=== PATIENT | male | born 1965 | race Hispanic/Latino ===

== ENCOUNTER 2017-02-20 15:27 | Inpatient (IN) | payer OTHER ==
[~2017-02-20] VITALS: Ht 167.6 cm; Wt 64.1 kg
[2017-02-20] VITALS (8 sets, daily range): BP systolic 126–145; BP diastolic 84–96
[~2017-02-20 15:27] MED LIST: CALCIUM CHLORIDE 100 MG/ML 10 ML SYG IVP ONE; HEPARIN SODIUM 1000UNIT/ML 10ML VIAL IV ONE
[2017-02-20] MEDS ORDERED: ATROPINE SULFATE 0.1 MG/ML 10 ML SYG IVP ONE (15:43)
[2017-02-20] MEDS ORDERED: NITROGLYCERIN 5 MG/ML 10 ML VIAL IV ONE (15:44)
[2017-02-20] MEDS ORDERED: IOPAMIDOL-370 75 ML VIAL IV ONE (15:44)
[2017-02-20] MEDS ORDERED: HEPARIN SODIUM 1000UNIT/ML 10ML VIAL ONE (15:44)
[2017-02-20] MEDS ORDERED: BIVALIRUDIN 250 MG/VIAL IV ONE (15:44)
[2017-02-20] MEDS ORDERED: LIDOCAINE HCL 2% 20ML ONE (15:44)
[2017-02-20] MEDS ORDERED: IOPAMIDOL-370 100 ML VIAL IV ONE (15:44)
[2017-02-20] MEDS ORDERED: MIDAZOLAM HCL 1 MG/ML 2ML VIAL ONE (16:27)
[2017-02-20] MEDS ORDERED: FENTANYL CITRATE PF 50 MCG/1 ML 2ML VIAL ONE (16:27)
[2017-02-20] MEDS ORDERED: SODIUM CHLORIDE 0.9% 1000ML 1,000 ML IV SCH (16:55)
[2017-02-20] MEDS ORDERED: GLUCAGON 1MG KIT 1 MG ML IM PRN (17:00)
[2017-02-20] MEDS ORDERED: DIAZEPAM 5 MG TABLET PO PRN (17:00)
[2017-02-20] MEDS ORDERED: DEXTROSE 50%-WATER 50 ML DISP.SYRIN IV PRN (17:00)
[2017-02-20] MEDS: CARVEDILOL 6.25 MG TABLET PO SCH (21:12)
[2017-02-20] MEDS: ATORVASTATIN CALCIUM 20 MG TABLET PO SCH (21:12)
[2017-02-21 04:29] VITALS: BP 146/79
[2017-02-21 04:41] LABS: HEMATOCRIT 44.7 % (42-54); MEAN CORPUSCULAR HEMOGLOBIN 31.3 pg (27.0-33.0); MEAN CORPUSCULAR HGB CONC 33.8 g/dL (32.0-36.0); MEAN CORPUSCULAR VOLUME 92.4 fL (79-99); PLATELET COUNT (AUTO) 336 K/uL (130-400); RED BLOOD CELL COUNT(AUTO) 4.84 MIL/uL (4.50-6.20); RED CELL DISTRIBUTION WIDTH 14.9 % (11.0-15.5)
[2017-02-21 05:35] LABS: CREATININE 0.8 mg/dL (0.5-1.5); POTASSIUM 3.8 mmol/L (3.5-5.1)
[2017-02-21 07:24] VITALS: BP 138/79
[2017-02-21] MEDS: LISINOPRIL 10 MG TABLET PO SCH (08:32)
[2017-02-21] MEDS: ASPIRIN 81MG TAB.CHEW PO SCH (08:32)
[2017-02-21] MEDS: CARVEDILOL 6.25 MG TABLET PO SCH ×2 (08:32→21:36)
[2017-02-21 11:07] VITALS: BP 141/85
[2017-02-21 16:09] VITALS: BP 146/97
[2017-02-21 20:11] VITALS: BP 149/95
[2017-02-21] MEDS: ATORVASTATIN CALCIUM 20 MG TABLET PO SCH (21:36)
[2017-02-21 23:32] VITALS: BP 140/92
[2017-02-22] VITALS (13 sets, daily range): BP systolic 130–178; BP diastolic 87–114
[2017-02-22 04:27] LABS: BASOPHILS % (AUTO) 0.7 % (0.0-5.0); EOSINOPHILS % (AUTO) 1.2 % (0.0-8.0); HEMATOCRIT 47.2 % (42-54); LYMPHOCYTES % (AUTO) 20.4 % (21.0-51.0); MEAN CORPUSCULAR HEMOGLOBIN 31.3 pg (27.0-33.0); MEAN CORPUSCULAR HGB CONC 33.8 g/dL (32.0-36.0); MEAN CORPUSCULAR VOLUME 92.5 fL (79-99); NEUTROPHILS % (AUTO) 69.7 % (40.0-77.0); PLATELET COUNT (AUTO) 273 K/uL (130-400); RED BLOOD CELL COUNT(AUTO) 5.11 MIL/uL (4.50-6.20); RED CELL DISTRIBUTION WIDTH 14.6 % (11.0-15.5); WHITE BLOOD COUNT (AUTO) 9.5 K/uL (4.8-10.8)
[2017-02-22 04:36] LABS: INR 1.02 (0.85-1.15); PARTIAL THROMBOPLASTIN TIME 28.7 SEC (26.3-35.5); PROTHROMBIN TIME 10.7 SEC (9.6-11.6)
[2017-02-22 04:42] LABS: CREATININE 0.7 mg/dL (0.5-1.5); POTASSIUM 3.4 mmol/L (3.5-5.1)
[2017-02-22 05:03] LABS: HEMOGLOBIN A1C 5.5 % (4.0-6.0)
[2017-02-22] MEDS ORDERED: CEFUROXIME 1.5GM+NS 100ML 100 ML IV SCH ×2 (06:00→17:30)
[2017-02-22] MEDS ORDERED: NITROGLYCERIN 50 MG/D5% WATER 1 BOT ONE (06:54)
[2017-02-22] MEDS ORDERED: BACITRACIN 50,000 UNIT VIAL ONE (06:54)
[2017-02-22] MEDS ORDERED: HEPARIN SODIUM 1000UNIT/ML 10ML VIAL ONE ×2 (06:54→07:39)
[2017-02-22] MEDS ORDERED: PAPAVERINE HCL 30 MG/ML 2ML VIAL ONE (06:54)
[2017-02-22] MEDS: CARVEDILOL 6.25 MG TABLET PO SCH ×2 (06:59→19:54)
[2017-02-22] MEDS ORDERED: CEFUROXIME SODIUM 1.5 GM VIAL IVP ONE (07:00)
[2017-02-22] MEDS ORDERED: WATER FOR INJECTION,STERILE 20 ML VIAL ONE (07:04)
[2017-02-22] MEDS ORDERED: SODIUM CHLORIDE 0.9% 1000ML 1,000 ML IV ONE (07:04)
[2017-02-22] MEDS ORDERED: PROTAMINE SULFATE 10 MG/ML 25ML VIAL IV ONE (07:39)
[2017-02-22] MEDS ORDERED: MIDAZOLAM HCL 1 MG/ML 5ML VIAL ONE (07:39)
[2017-02-22] MEDS ORDERED: PROPOFOL 10 MG/ML 20ML VIAL IV ONE (07:39)
[2017-02-22] MEDS ORDERED: LIDOCAINE PF 2% 5ML ABBOJECT ONE (07:39)
[2017-02-22] MEDS ORDERED: CALCIUM CHLORIDE 100 MG/ML 10 ML SYG IVP ONE (07:39)
[2017-02-22] MEDS ORDERED: MILRINONE-D5W 20 MG/100 ML 100 ML IV ONE (07:39)
[2017-02-22] MEDS ORDERED: NEOSTIGMINE METHYLSULFATE 1MG/ML IV ONE (07:39)
[2017-02-22] MEDS ORDERED: FENTANYL CITRATE PF 50 MCG/1 ML 20ML VIAL IJ ONE (07:39)
[2017-02-22] MEDS ORDERED: AMINOCAPROIC ACID 250 MG/ML 20 ML VIAL IV ONE (07:39)
[2017-02-22] MEDS ORDERED: ROCURONIUM BROMIDE 10MG/1ML 5ML VL ONE (07:39)
[2017-02-22] MEDS ORDERED: EPINEPHRINE 1 MG/ML AMPULE ONE (07:39)
[2017-02-22] MEDS ORDERED: NOREPINEPHRINE BITARTRATE 1 MG/1 ML ML IV ONE (07:39)
[2017-02-22] MEDS ORDERED: AMIODARONE HCL 900MG/18ML IV ONE (07:39)
[2017-02-22] MEDS ORDERED: ESMOLOL HCL 10 MG/ML 10 ML VIAL ONE (07:39)
[2017-02-22] MEDS ORDERED: GLYCOPYRROLATE 0.2 MG/ML 5 ML VIAL ONE (07:39)
[2017-02-22 08:16] LABS: ABG BASE EXCESS -2.8 mmol/L (-2.0-3.0); ABG HCO3 21.1 mmol/L (21.0-28.0); ABG OXYGEN SATURATION 99.1 % (95.0-99.0); ABG PCO2 34 mmHg (35-48)
[2017-02-22] MEDS ORDERED: THROMBIN-JMI 5000 UNIT/VIAL TP ONE (08:33)
[2017-02-22] MEDS ORDERED: SODIUM BICARB 8.4% 50ML SYRINGE ONE (08:47)
[2017-02-22] MEDS ORDERED: DEXTROSE 50%-WATER 50 ML DISP.SYRIN IV ONE (08:47)
[2017-02-22] MEDS ORDERED: SODIUM BICARB 50MEQ 50ML VIAL ONE (08:49)
[2017-02-22] MEDS ORDERED: OCTYL 2-CYANOACRYLATE 1 EACH TP ONE (08:57)
[2017-02-22] MEDS: ASPIRIN 81MG TAB.CHEW PO SCH (09:00)
[2017-02-22] MEDS: LISINOPRIL 10 MG TABLET PO SCH (09:00)
[2017-02-22] MEDS ORDERED: SODIUM CHLORIDE 0.9% 500ML 500 ML IV SCH (09:27)
[2017-02-22] MEDS ORDERED: GLUCAGON 1MG KIT 1 MG ML IM PRN (09:30)
[2017-02-22] MEDS ORDERED: SODIUM CHLORIDE 0.9% 10 ML VIAL IVP PRN (09:30)
[2017-02-22] MEDS ORDERED: ACETAMINOPHEN 325 MG TAB PO PRN (09:30)
[2017-02-22] MEDS ORDERED: ACETAMINOPHEN 650 MG SUPPOSITORY RC PRN (09:30)
[2017-02-22] MEDS ORDERED: MORPHINE SULFATE 2 MG/ML 1ML SYG IV PRN (09:30)
[2017-02-22] MEDS ORDERED: SODIUM CHLORIDE 0.9% 250 ML IV PRN (09:30)
[2017-02-22] MEDS ORDERED: PROPOFOL 1000 MG/100 ML 100 ML IV PRN (09:30)
[2017-02-22] MEDS ORDERED: NOREPINEPHRINE 4MG/NS 250ML 250 ML IV PRN (09:30)
[2017-02-22] MEDS ORDERED: INSULIN REGULAR, HUMAN 3ML 100 UNIT in SODIUM CHLORIDE 0.9% 99 ML IV SCH ×2 (09:30)
[2017-02-22] MEDS ORDERED: AMINOCAPROIC ACID 15,000 MG in SODIUM CHLORIDE 0.9% 250 ML IV SCH (09:30)
[2017-02-22] MEDS ORDERED: MORPHINE SULFATE 4 MG/1ML SYG IV PRN (09:30)
[2017-02-22] MEDS ORDERED: POTASSIUM PHOS 15 mMOL+NS250ML 250 ML IV PRN (09:30)
[2017-02-22] MEDS ORDERED: SODIUM BICARB 8.4% 50ML SYRINGE IV PRN (09:30)
[2017-02-22] MEDS ORDERED: SODIUM CHLORIDE 0.9% 1000ML 1,000 ML IV SCH (09:30)
[2017-02-22] MEDS ORDERED: EPINEPHRINE 2 MG in SODIUM CHLORIDE 0.9% 250 ML IV PRN (09:30)
[2017-02-22] MEDS ORDERED: ONDANSETRON HCL 4 MG/2 ML VIAL IV PRN (09:30)
[2017-02-22] MEDS ORDERED: DEXTROSE 50%-WATER 50 ML DISP.SYRIN IV PRN (09:30)
[2017-02-22] MEDS ORDERED: MAGNESIUM 2GM PREMIX 50ML 50 ML IV PRN (09:30)
[2017-02-22] MEDS ORDERED: CALCIUM GLUCONATE 1 GM in SODIUM CHLORIDE 0.9% 50 ML IV PRN (09:30)
[2017-02-22] MEDS ORDERED: ALBUMIN (HUMAN) 5% 250 ML IV PRN (09:30)
[2017-02-22 09:35] LABS: ABG BASE EXCESS 1.1 mmol/L (-2.0-3.0); ABG HCO3 24.2 mmol/L (21.0-28.0); ABG OXYGEN SATURATION 99.5 % (95.0-99.0); ABG PCO2 34 mmHg (35-48)
[2017-02-22 10:42] LABS: ABG BASE EXCESS -1.9 mmol/L (-2.0-3.0); ABG HCO3 21.3 mmol/L (21.0-28.0); ABG OXYGEN SATURATION 99.3 % (95.0-99.0); ABG PCO2 32 mmHg (35-48)
[2017-02-22] MEDS ORDERED: CEFUROXIME SODIUM 1.5 GM VIAL ONE (11:19)
[2017-02-22 12:11] LABS: ABG BASE EXCESS -2.1 mmol/L (-2.0-3.0); ABG HCO3 22.7 mmol/L (21.0-28.0); ABG OXYGEN SATURATION 99.3 % (95.0-99.0); ABG PCO2 39 mmHg (35-48)
[2017-02-22 13:48] LABS: ABG BASE EXCESS -5.8 mmol/L (-2.0-3.0); ABG HCO3 19.1 mmol/L (21.0-28.0); ABG PCO2 36 mmHg (35-48)
[2017-02-22 15:06] LABS: ABG BASE EXCESS -3.9 mmol/L (-2.0-3.0); ABG HCO3 20.9 mmol/L (21.0-28.0); ABG OXYGEN SATURATION 98.6 % (95.0-99.0); ABG PCO2 38 mmHg (35-48)
[2017-02-22 15:18] LABS: HEMATOCRIT 42.1 % (42-54); MEAN CORPUSCULAR HEMOGLOBIN 31.1 pg (27.0-33.0); MEAN CORPUSCULAR HGB CONC 33.5 g/dL (32.0-36.0); MEAN CORPUSCULAR VOLUME 92.8 fL (79-99); PLATELET COUNT (AUTO) 284 K/uL (130-400); RED BLOOD CELL COUNT(AUTO) 4.53 MIL/uL (4.50-6.20); RED CELL DISTRIBUTION WIDTH 14.6 % (11.0-15.5); WHITE BLOOD COUNT (AUTO) 18.7 K/uL (4.8-10.8)
[2017-02-22 15:27] LABS: CREATININE 0.7 mg/dL (0.5-1.5); MAGNESIUM 1.2 mg/dL (1.80-2.40); PHOSPHORUS 4.3 mg/dL (2.5-4.9); POTASSIUM 3.4 mmol/L (3.5-5.1)
[2017-02-22 15:33] LABS: BAND NEUTROPHILS % (MANUAL) 1 % (0-2); LYMPHOCYTES % (MANUAL) 5 % (22-44); MONOCYTES % (MANUAL) 4 % (2-9); REACTIVE LYMPHOCYTES 1 % (0-0); SEGMENTED NEUTROPHILS % 89 % (40-70)
[2017-02-22 15:34] LABS: PLATELET MORPHOLOGY COMMENT ADEQUATE
[2017-02-22] MEDS: POTASSIUM CHLORIDE 20MEQ/100ML 100 ML IV PRN ×3 (15:35→22:53)
[2017-02-22] MEDS: NITROGLYCERIN 50 MG/D5% WATER 250 BOT IV SCH (16:13)
[2017-02-22] MEDS: HYDROCODONE/ACETAMINOPHEN 5/325 MG TAB PO PRN ×2 (16:39→19:50)
[2017-02-22] MEDS: CEFUROXIME SODIUM 1.5 GM VIAL IVP SCH (16:39)
[2017-02-22] MEDS: ATORVASTATIN CALCIUM 20 MG TABLET PO SCH (19:54)
[2017-02-22] MEDS: INSULIN HUMULIN R 100 UNIT/ML 3ML SQ SCH (21:00)
[2017-02-22 21:48] LABS: ABG BASE EXCESS -2.9 mmol/L (-2.0-3.0); ABG HCO3 21.3 mmol/L (21.0-28.0); ABG OXYGEN SATURATION 97.6 % (95.0-99.0); ABG PCO2 35 mmHg (35-48)
[2017-02-23] VITALS (11 sets, daily range): BP systolic 103–144; BP diastolic 52–97
[2017-02-23] MEDS: HYDROCODONE/ACETAMINOPHEN 5/325 MG TAB PO PRN ×6 (00:09→23:30)
[2017-02-23] MEDS: NITROGLYCERIN 50 MG/D5% WATER 250 BOT IV SCH (03:07)
[2017-02-23 03:32] LABS: HEMATOCRIT 34.6 % (42-54); MEAN CORPUSCULAR HEMOGLOBIN 31.2 pg (27.0-33.0); MEAN CORPUSCULAR HGB CONC 33.7 g/dL (32.0-36.0); MEAN CORPUSCULAR VOLUME 92.7 fL (79-99); PLATELET COUNT (AUTO) 212 K/uL (130-400); RED BLOOD CELL COUNT(AUTO) 3.74 MIL/uL (4.50-6.20); RED CELL DISTRIBUTION WIDTH 14.5 % (11.0-15.5); WHITE BLOOD COUNT (AUTO) 13.2 K/uL (4.8-10.8)
[2017-02-23 03:42] LABS: CREATININE 0.8 mg/dL (0.5-1.5); MAGNESIUM 1.3 mg/dL (1.80-2.40); PHOSPHORUS 3.5 mg/dL (2.5-4.9)
[2017-02-23] MEDS: CEFUROXIME SODIUM 1.5 GM VIAL IVP SCH ×2 (05:09→17:06)
[2017-02-23] MEDS: WATER FOR INJECTION,STERILE 20 ML VIAL IJ SCH ×3 (05:09→17:06)
[2017-02-23] MEDS: POTASSIUM CHLORIDE 20MEQ/100ML 100 ML IV PRN (05:57)
[2017-02-23] MEDS: INSULIN HUMULIN R 100 UNIT/ML 3ML SQ SCH ×4 (06:15→21:00)
[2017-02-23] MEDS: ASPIRIN 81MG TAB.CHEW PO SCH (08:06)
[2017-02-23] MEDS: CARVEDILOL 6.25 MG TABLET PO SCH ×2 (08:06→21:10)
[2017-02-23] MEDS: LISINOPRIL 10 MG TABLET PO SCH (08:07)
[2017-02-23] MEDS ORDERED: SODIUM CHLORIDE 0.9% 500ML 500 ML IV SCH (08:38)
[2017-02-23] MEDS ORDERED: SODIUM CHLORIDE 0.9% 10 ML VIAL IVP PRN (08:45)
[2017-02-23] MEDS ORDERED: MAGNESIUM 2GM PREMIX 50ML 50 ML IV PRN ×2 (08:45→09:45)
[2017-02-23] MEDS ORDERED: ACETAMINOPHEN 650 MG SUPPOSITORY RC PRN (08:45)
[2017-02-23] MEDS ORDERED: MORPHINE SULFATE 2 MG/ML 1ML SYG IV PRN (08:45)
[2017-02-23] MEDS ORDERED: NOREPINEPHRINE 4MG/NS 250ML 250 ML IV PRN (08:45)
[2017-02-23] MEDS ORDERED: PROPOFOL 1000 MG/100 ML 100 ML IV PRN (08:45)
[2017-02-23] MEDS ORDERED: ONDANSETRON HCL 4 MG/2 ML VIAL IV PRN ×2 (08:45→09:45)
[2017-02-23] MEDS ORDERED: ACETAMINOPHEN 325 MG TAB PO PRN (08:45)
[2017-02-23] MEDS ORDERED: POTASSIUM PHOS 15 mMOL+NS250ML 250 ML IV PRN (08:45)
[2017-02-23] MEDS ORDERED: INSULIN REGULAR, HUMAN 3ML 100 UNIT in SODIUM CHLORIDE 0.9% 99 ML IV SCH ×2 (08:45)
[2017-02-23] MEDS ORDERED: GLUCAGON 1MG KIT 1 MG ML IM PRN (08:45)
[2017-02-23] MEDS ORDERED: ALBUMIN (HUMAN) 5% 250 ML IV PRN (08:45)
[2017-02-23] MEDS ORDERED: CALCIUM GLUCONATE 1 GM in SODIUM CHLORIDE 0.9% 50 ML IV PRN ×2 (08:45→09:45)
[2017-02-23] MEDS ORDERED: DEXTROSE 50%-WATER 50 ML DISP.SYRIN IV PRN (08:45)
[2017-02-23] MEDS ORDERED: SODIUM BICARB 8.4% 50ML SYRINGE IV PRN (08:45)
[2017-02-23] MEDS ORDERED: HYDROCODONE/ACETAMINOPHEN 5/325 MG TAB PO PRN ×2 (08:45)
[2017-02-23] MEDS ORDERED: NITROGLYCERIN 50 MG/D5% WATER 250 BOT IV SCH (08:45)
[2017-02-23] MEDS ORDERED: POTASSIUM CHLORIDE 20MEQ/100ML 100 ML IV PRN (08:45)
[2017-02-23] MEDS ORDERED: SODIUM CHLORIDE 0.9% 250 ML IV PRN (08:45)
[2017-02-23] MEDS ORDERED: MORPHINE SULFATE 4 MG/1ML SYG IV PRN (08:45)
[2017-02-23] MEDS ORDERED: EPINEPHRINE 2 MG in DEXTROSE 5%-WATER 250 ML IV PRN (08:45)
[2017-02-23] MEDS ORDERED: SODIUM CHLORIDE 0.9% 1000ML 1,000 ML IV SCH (08:45)
[2017-02-23] MEDS ORDERED: PANTOPRAZOLE SODIUM 40 MG TABLET.DR PO SCH (09:00)
[2017-02-23] MEDS ORDERED: POTASSIUM CHLORIDE 20 MEQ ERTAB PO SCH (09:00)
[2017-02-23] MEDS ORDERED: FUROSEMIDE 20 MG TABLET PO SCH (09:00)
[2017-02-23] MEDS ORDERED: PANTOPRAZOLE 40 MG/VIAL IV SCH (09:00)
[2017-02-23] MEDS ORDERED: POTASSIUM CHLORIDE 20 MEQ ERTAB PO PRN (09:45)
[2017-02-23] MEDS: METOCLOPRAMIDE 10 MG/2 ML VIAL IVP SCH ×3 (11:35→23:13)
[2017-02-23] MEDS ORDERED: METOCLOPRAMIDE 10 MG/2 ML VIAL IVP SCH (12:00)
[2017-02-23] MEDS ORDERED: CEFUROXIME SODIUM 1.5 GM VIAL IVP SCH (16:45)
[2017-02-23] MEDS ORDERED: CEFUROXIME 1.5GM+NS 100ML 100 ML IV SCH (16:45)
[2017-02-23] MEDS: ATORVASTATIN CALCIUM 20 MG TABLET PO SCH (21:09)
[2017-02-24] VITALS: BP 116/76
[2017-02-24 04:00] VITALS: BP 137/95
[2017-02-24] MEDS: WATER FOR INJECTION,STERILE 20 ML VIAL IJ SCH (04:45)
[2017-02-24] MEDS: METOCLOPRAMIDE 10 MG/2 ML VIAL IVP SCH ×4 (05:10→23:01)
[2017-02-24 05:15] LABS: BASOPHILS % (AUTO) 0.2 % (0.0-5.0); HEMATOCRIT 36.1 % (42-54); LYMPHOCYTES % (AUTO) 11.3 % (21.0-51.0); MEAN CORPUSCULAR HEMOGLOBIN 32.7 pg (27.0-33.0); MEAN CORPUSCULAR VOLUME 93.4 fL (79-99); MONOCYTES % (AUTO) 8.5 % (3.0-13.0); PLATELET COUNT (AUTO) 284 K/uL (130-400); RED BLOOD CELL COUNT(AUTO) 3.86 MIL/uL (4.50-6.20); RED CELL DISTRIBUTION WIDTH 14.8 % (11.0-15.5); WHITE BLOOD COUNT (AUTO) 15.1 K/uL (4.8-10.8)
[2017-02-24 05:28] LABS: CREATININE 0.8 mg/dL (0.5-1.5); MAGNESIUM 1.8 mg/dL (1.80-2.40); POTASSIUM 3.9 mmol/L (3.5-5.1)
[2017-02-24] MEDS: INSULIN HUMULIN R 100 UNIT/ML 3ML SQ SCH ×3 (06:48→16:30)
[2017-02-24 07:45] VITALS: BP 146/93
[2017-02-24] MEDS ORDERED: CEFUROXIME 1.5GM+NS 100ML 100 ML IV SCH (09:00)
[2017-02-24] MEDS ORDERED: FUROSEMIDE 20 MG TABLET PO SCH (09:00)
[2017-02-24] MEDS: PANTOPRAZOLE SODIUM 40 MG TABLET.DR PO SCH (09:04)
[2017-02-24] MEDS: CARVEDILOL 6.25 MG TABLET PO SCH (09:04)
[2017-02-24] MEDS: ASPIRIN 81MG TAB.CHEW PO SCH (09:04)
[2017-02-24] MEDS: LISINOPRIL 10 MG TABLET PO SCH (09:04)
[2017-02-24] MEDS: POTASSIUM CHLORIDE 20 MEQ ERTAB PO SCH (09:05)
[2017-02-24 11:47] VITALS: BP 128/90
[2017-02-24 16:00] VITALS: BP 131/92
[2017-02-24] MEDS: HYDROCODONE/ACETAMINOPHEN 5/325 MG TAB PO PRN (18:04)
[2017-02-24 19:56] VITALS: BP 123/86
[2017-02-24] MEDS ORDERED: CALCIUM GLUCONATE 1 GM in SODIUM CHLORIDE 0.9% 50 ML IV SCH (21:00)
[2017-02-24] MEDS: CARVEDILOL 12.5 MG TABLET PO SCH (22:37)
[2017-02-24] MEDS: POTASSIUM CHLORIDE 10% ELIXIR 20 MEQ/15 ML UDCUP PO SCH (22:39)
[2017-02-24] MEDS: ATORVASTATIN CALCIUM 20 MG TABLET PO SCH (22:39)
[2017-02-25] VITALS (7 sets, daily range): BP systolic 112–133; BP diastolic 47–97
[2017-02-25 04:48] LABS: BASOPHILS % (AUTO) 0.5 % (0.0-5.0); EOSINOPHILS % (AUTO) 0.2 % (0.0-8.0); HEMATOCRIT 30.2 % (42-54); LYMPHOCYTES % (AUTO) 12.8 % (21.0-51.0); MEAN CORPUSCULAR HGB CONC 34.5 g/dL (32.0-36.0); MONOCYTES % (AUTO) 7.7 % (3.0-13.0); NEUTROPHILS % (AUTO) 78.8 % (40.0-77.0); PLATELET COUNT (AUTO) 240 K/uL (130-400); RED BLOOD CELL COUNT(AUTO) 3.25 MIL/uL (4.50-6.20); RED CELL DISTRIBUTION WIDTH 14.5 % (11.0-15.5); WHITE BLOOD COUNT (AUTO) 11.7 K/uL (4.8-10.8)
[2017-02-25 05:12] LABS: CREATININE 0.6 mg/dL (0.5-1.5); POTASSIUM 3.7 mmol/L (3.5-5.1)
[2017-02-25] MEDS: POTASSIUM CHLORIDE 10% ELIXIR 20 MEQ/15 ML UDCUP PO SCH ×2 (06:13→20:44)
[2017-02-25] MEDS: METOCLOPRAMIDE 10 MG/2 ML VIAL IVP SCH ×3 (06:14→18:14)
[2017-02-25] MEDS: ASPIRIN 81MG TAB.CHEW PO SCH (11:16)
[2017-02-25] MEDS: FUROSEMIDE 20 MG TABLET PO SCH ×2 (11:16→18:14)
[2017-02-25] MEDS: LISINOPRIL 10 MG TABLET PO SCH (11:16)
[2017-02-25] MEDS: PANTOPRAZOLE SODIUM 40 MG TABLET.DR PO SCH (11:16)
[2017-02-25] MEDS: POTASSIUM CHLORIDE 20 MEQ ERTAB PO SCH (11:16)
[2017-02-25] MEDS: ENOXAPARIN SODIUM 30 MG/0.3 ML SQ SCH (11:17)
[2017-02-25] MEDS: CARVEDILOL 12.5 MG TABLET PO SCH ×2 (11:17→20:43)
[2017-02-25] MEDS ORDERED: FURO20TA6 PO (16:43)
[2017-02-25] MEDS ORDERED: ATOR20TA65 PO (16:43)
[2017-02-25] MEDS ORDERED: ASPI-1005 PO (16:43)
[2017-02-25] MEDS ORDERED: PANT40TA PO (16:43)
[2017-02-25] MEDS ORDERED: CARV12.580 PO (16:43)
[2017-02-25] MEDS ORDERED: LISI10TA7 PO (16:43)
[2017-02-25] MEDS: ATORVASTATIN CALCIUM 20 MG TABLET PO SCH (20:43)
[2017-02-25] MEDS ORDERED: SODIUM CHLORIDE 0.9% 1000ML 1,000 ML IV ONE (21:19)
[2017-02-26 03:20] VITALS: BP 128/88
[2017-02-26] MEDS: METOCLOPRAMIDE 10 MG/2 ML VIAL IVP SCH ×2 (05:21)
[2017-02-26 07:48] VITALS: BP 130/90
[2017-02-26] MEDS ORDERED: CARVEDILOL 12.5 MG TABLET PO SCH (09:00)
[2017-02-26 09:19] VITALS: BP 130/90
[2017-02-26] MEDS: LISINOPRIL 10 MG TABLET PO SCH (09:19)
[2017-02-26] MEDS: PANTOPRAZOLE SODIUM 40 MG TABLET.DR PO SCH (09:19)
[2017-02-26] MEDS: ASPIRIN 81MG TAB.CHEW PO SCH (09:19)
[2017-02-26] MEDS: ENOXAPARIN SODIUM 30 MG/0.3 ML SQ SCH (09:20)
== END 2017-02-26 10:45 | disposition home or self-care (01) | DRG 233 ==
LOC: 2DH 15:56 → 2CV 02-22 07:18 → 2AH 02-23 10:40
PROVIDERS: ADMIT Family Medicine; ATTEND Family Medicine
PROC: 4A023N7 Measurement of Cardiac Sampling and Pressure, Left Heart, Percutaneous Approach (ICD-10-PCS; 2017-02-20)
PROC: B2111ZZ Fluoroscopy of Multiple Coronary Arteries using Low Osmolar Contrast (ICD-10-PCS; 2017-02-20)
PROC: B2151ZZ Fluoroscopy of Left Heart using Low Osmolar Contrast (ICD-10-PCS; 2017-02-20)
PROC: B3121ZZ Fluoroscopy of Left Subclavian Artery using Low Osmolar Contrast (ICD-10-PCS; 2017-02-20)
PROC: 02100Z9 Bypass Coronary Artery, One Artery from Left Internal Mammary, Open Approach (ICD-10-PCS; 2017-02-22)
PROC: 06BP4ZZ Excision of Right Saphenous Vein, Percutaneous Endoscopic Approach (ICD-10-PCS; 2017-02-22)
PROC: 06BQ4ZZ Excision of Left Saphenous Vein, Percutaneous Endoscopic Approach (ICD-10-PCS; principal; 2017-02-22 07:45)
PROC: 021309W Bypass Coronary Artery, Four or More Arteries from Aorta with Autologous Venous Tissue, Open Approach (ICD-10-PCS; 2017-02-22 07:45)
DX: I21.4 Non-ST elevation (NSTEMI) myocardial infarction (principal); I50.41 Acute combined systolic (congestive) and diastolic (congestive) heart failure; F14.20 Cocaine dependence, uncomplicated; D62 Acute posthemorrhagic anemia; I25.110 Atherosclerotic heart disease of native coronary artery with unstable angina pectoris; F12.20 Cannabis dependence, uncomplicated; E78.5 Hyperlipidemia, unspecified; F17.210 Nicotine dependence, cigarettes, uncomplicated; F19.10 Other psychoactive substance abuse, uncomplicated; Z82.49 Family history of ischemic heart disease and other diseases of the circulatory system; Z79.899 Other long term (current) drug therapy
CPT/HCPCS: 36415; 36600; 71010; 80048; 80061; 82330; 82435; 82803; 82947; 82948; 83036; 83605; 83735; 84100; 84132; 84295; 85018; 85025; 85027; 85347; 85610; 85730; 86850; 86900; 86901; 86922; 93005; 93458; 93880; 94002; 94010; 99152; 99153; A7048; C1760; C1894; C9113; J0171; J0282; J0461; J0583; J0610; J0697; J1644; J1650; J2001; J2250; J2260; J2405; J2440; J2704; J2710; J2720; J2765; J3010; J3475; J3480; J3490; J7030; J7040; J7070; Q9967